=== PATIENT | male | born 1945 | race Caucasian/White ===

== ENCOUNTER → 2021-12-05 16:23 | Outpatient (CLI) | payer MEDICARE, SELFPAY ==
[2021-12-05 18:39] LABS: Prostate Specific Antigen 3.78 ng/mL (0.10-4.00)
== END ==
PROVIDERS: PCP Specialist; Referring Provider Specialist; Visit Provider Specialist
DX: R97.20 Elevated prostate specific antigen [PSA] (principal)
CPT/HCPCS: 36415; 84153